=== PATIENT | male | born 1990 | race Caucasian/White ===

== ENCOUNTER 2017-03-03 21:50 | Inpatient (IN) | payer OTHER ==
[2017-03-03 21:57] VITALS: BMI 23.2
--- NOTE | 2017-03-03 22:30 | HP ---
COWS - Scale Resting Pulse: 0= [place] 80 or Below Sweatin=Flushed/Facial Moisture Restless Observation: 1= Difficult to Sit Still Pupil Size: 1= Pupils >than Normal Bone or Joint Aches: 2= Severe Diffuse Aches Runny Nose/ Eye Tearin= Constantly Teary/Runny GI Upset > 30mins: 1= Stomach Cramp Tremor Observation: 2= Slight Tremor Visible Yawning Observation: 1= 1-2x During Session Anxiety or Irritability: 2=Irritable/Anxious Goose Flesh Skin: 0=Smooth Skin COWS Score: 16 Admission [facility] Chief Complaint: Opioid withdrawal symptoms Allergies/Adverse Reactions: Allergies Allergy/AdvReac Type Severity Reaction Status Date / Time No Known Allergies Allergy Verified 03/03/17 22:28 History of Present Illness: 26 years old male with a long history of heroin and cocaine dependence is seeking admission to detox. Resident has been in previous detox, last at [facility]. He reports insignificant period of sobriety and denies suicidal ideation at this time. He has medical history of anemia and depression. Exam Limitations: No Limitations - Ebola screening Have you traveled outside of the country in the last 21 days: No Have you had contact with anyone from an Ebola affected area: No Have you been sick,other than usual withdrawal symptoms: No Do you have a fever: No - Review of Systems Constitutional: Loss of Appetite, Malaise, Changes in sleep EENT: reports: Nose Congestion, Sinus Pressure Respiratory: reports: No Symptoms reported Cardiac: reports: No Symptoms Reported GI: reports: Poor Appetite, Poor Fluid Intake, Abdominal cramping : reports: No Symptoms Reported Musculoskeletal: reports: Back Pain, Muscle Pain, Muscle Weakness Integumentary: reports: Flushing Neuro: reports: Tingling, Tremors Endocrine: reports: No Symptoms Reported Hematology: reports: Anemia Psychiatric: reports: Orientated x3, Agitated, Anxious, Depressed Other Systems: Reviewed and Negative Patient History - Patient Medical History Hx Anemia: Yes Hx Asthma: No Hx Chronic Obstructive Pulmonary Disease (COPD): No Hx Cancer: No Hx Cardiac Disorders: No Hx Congestive Heart Failure: No Hx Hypertension: No Hx Hypercholesterolemia: No Hx Pacemaker: No HX Cerebrovascular Accident: No Hx Seizures: No Hx Diabetes: No Hx Gastrointestinal Disorders: No Hx Liver Disease: No Hx Genitourinary Disorders: No Hx Sexually Transmitted Disorders: No Hx Renal Disease (ESRD): No Hx Thyroid Disease: No Hx Human Immunodeficiency Virus (HIV): No (Negative October 2016) Hx Hepatitis C: No Hx Depression: Yes Hx Suicide Attempt: No (Denies suicidal ideation at this time) Hx Bipolar Disorder: No Hx Schizophrenia: No - Patient Surgical History Past Surgical History: No - PPD History Previous Implant?: Yes Documented Results: Negative w/o proof Implanted On Prior R Admission?: No PPD to be Administered?: Yes - Reproductive History Patient is a Female of Child Bearing Age (11 -55 yrs old): No (MALE) - Smoking Cessation Smoking history: Current every day smoker Have you smoked in the past 12 months: Yes Aproximately how many cigarettes per day: 15 Hx Chewing Tobacco Use: No Initiated information on smoking cessation: Yes 'Breaking Loose' booklet given: 03/03/17 - Substance & Tx. History Hx Alcohol Use: No Hx Substance Use: Yes Substance Use Type: Cocaine, Heroin, Opiates Hx Substance Use Treatment: Yes (MICAH PEREZ 2016) - Substances Abused Heroin Route: Injection Frequency: Daily Amount used: 10 bags Age of first use: 19 Date of Last Use: 03/03/17 Cocaine Route: Injection Frequency: Daily Amount used: 1/2 gram Age of first use: 23 Date of Last Use: 03/03/17 Oxycontin Route: Oral Frequency: 3-6 times per week Amount used: 1 tablet Age of first use: 18 Date of Last Use: 03/02/17 Family Disease History - Family Disease History Family Disease History: Heart Disease: Father (AFIB), Respiratory: Grandparent ( GRANDMOTHER COPD - ) Admission Physical Exam S - Vital Signs Vital Signs: Vital Signs - 24 hr 03/03/17 21:55 Temperature 96.7 F L Pulse Rate 74 Respiratory 18 Rate Blood Pressure 112/52 - Physical General Appearance: Yes: Moderate Distress, Tremorous, Irritable, Anxious HEENTM: Yes: EOMI, Normal ENT Inspection, Normal Voice, UNIQUE Respiratory: Yes: Lungs Clear, Normal Breath Sounds, No Respiratory Distress Neck: Yes: Supple Breast: Yes: Breast Exam Deferred Cardiology: Yes: Regular Rhythm, Regular Rate, S1, S2 Abdominal: Yes: Normal Bowel Sounds, Soft Genitourinary: Yes: Within Normal Limits Back: Yes: Within Normal Limits Musculoskeletal: Yes: Back pain, Muscle Pain, Muscle weakness Extremities: Yes: Tremors Neurological: Yes: Within Normal Limits, Alert, Normal Response Integumentary: Yes: Dry, Track [place] (both hands) Lymphatic: Yes: Within Normal Limits - Diagnostic (1) Opioid dependence with withdrawal Current Visit: Yes Status: Chronic (2) Cocaine dependence, uncomplicated Current Visit: Yes Status: Chronic (3) Anemia Current Visit: Yes Status: Chronic Qualifiers: Anemia type: iron deficiency (4) Depression Current Visit: Yes Status: Chronic Cleared for Admission [facility] - Detox or Rehab [facility] Level of Care: Medically Managed Detox Regimen/Protocol: Methadone [facility] Breath Alcohol Content Breath Alcohol Content: 0 Urine Drug Screen - Results Drug Screen Negative: No Urine Drug Screen Results: FERNANDO-Cocaine, OPI-Opiates, OXY-Oxycodone
[2017-03-03] MEDS ORDERED: MAG HYDROX/AL HYDROX/SIMETH 30 ML UNIT-DOSE CUP PO PRN (22:53)
[2017-03-03] MEDS ORDERED: guaiFENesin/D-METHORPHAN HB 10 ML UNIT-DOSE CUPS PO PRN (22:53)
[2017-03-03] MEDS ORDERED: IBUPROFEN 400 MG TABLET (FP) PO PRN (22:53)
[2017-03-03] MEDS ORDERED: MAGNESIUM CITRATE 300 ML BOTTLE PO PRN (22:53)
[2017-03-03] MEDS ORDERED: P-EPHED 60MG/TRIPROLIDI 2.5MG TABLET PO PRN (22:53)
[2017-03-03] MEDS ORDERED: ACETAMINOPHEN 325 MG TABLET (FP) PO PRN (22:53)
[2017-03-03] MEDS ORDERED: LOPERAMIDE HCL 2 MG CAPSULE PO PRN (22:53)
[2017-03-03] MEDS ORDERED: MAGNESIUM HYDROX 2400MG/30ML ORAL SUSPENSION 30 ML CUP PO PRN (22:53)
[2017-03-03] MEDS ORDERED: METHADONE HCL 10 MG TABLET (FOR DETOX USE ONLY) PO ONE ×2 (22:53→23:00)
[2017-03-03] MEDS ORDERED: MENTHOL/PHENOL 1 EACH UD MM PRN (22:53)
[2017-03-04] MEDS ORDERED: METHADONE HCL 10 MG TABLET (FOR DETOX USE ONLY) PO ONE ×3 (01:05→23:00)
[2017-03-04] MEDS: diazePAM 5 MG TABLET PO PRN ×4 (01:33→22:02)
[2017-03-04 10:14] LABS: CHLORIDE 104 mmol/L (98-107); SODIUM 140 mmol/L (136-145)
[2017-03-04 10:16] LABS: HEMATOCRIT 34.7 % (35.4-49); HEMOGLOBIN 11.3 GM/dL (11.7-16.9); MCH 26.9 pg (25.7-33.7); MCHC 32.5 g/dl (32.0-35.9); MEAN PLT VOLUME 8.8 fl (7.5-11.1); PLATELET COUNT 202 K/MM3 (134-434); RBC 4.19 M/mm3 (4.00-5.60); RDW 15.5 % (11.9-15.9); WHITE BLOOD COUNT 4.7 K/mm3 (4.0-10.0)
[2017-03-04 10:30] LABS: ALBUMIN 3.4 g/dl (3.4-5.0); ALK PHOS 63 U/L (45-117); ANION GAP 7 (8-16); BILIRUBIN,TOTAL 0.7 mg/dL (0.2-1.0); BLOOD UREA NITROGEN 12 mg/dL (7-18); CALCIUM 8.5 mg/dL (8.5-10.1); CO2 29 mmol/L (21-32); CREATININE 0.8 mg/dL (0.7-1.3); GLUCOSE,RANDOM 83 mg/dL (74-106); SGOT/AST 18 U/L (15-37); SGPT/ALT 19 U/L (12-78); TOT PROT 7.3 g/dl (6.4-8.2)
[2017-03-04] MEDS: PRENATAL VITAMINS W/ FOLIC ACID TABLET (FP) PO SCH (10:48)
[2017-03-04] MEDS: NICOTINE POLACRILEX 2 MG GUM BC PRN ×2 (10:50→17:12)
[2017-03-04] MEDS: NICOTINE 14 MG/24 HOURS TOPICAL PATCH TD SCH (10:50)
--- NOTE | 2017-03-04 10:55 | EKG ---
Test Reason : Blood Pressure : / mmHG Vent. Rate : 061 BPM Atrial Rate : 061 BPM P-R Int : 156 ms QRS Dur : 092 ms QT Int : 386 ms P-R-T Axes : 045 074 062 degrees QTc Int : 388 ms NORMAL SINUS RHYTHM NORMAL ECG NO PREVIOUS ECGS AVAILABLE Confirmed by MD Justus, Tushar ([id number]) on 03/04/2017 10:54:44 AM Referred By: Felipe Benson Confirmed By:Tushar Jerome MD
--- NOTE | 2017-03-04 11:03 | CONSULT ---
[facility] Psychiatric Consult - Data Date of interview: 03/04/17 Admission source: Self-referred Identifying data: Mr Painter is a 26 years old single , employed as wall taper, living with family Substance Abuse History: Reports history of heroin oxycontin and cocaine use. Refer to addiction counselor's note for further information Medical History: Significant history of anemia. Smokes 15 cigarettes daily Psychiatric History: Reports he saw a psychiatrist in 2012 as recoommended by her mother because of his drug use. He said that the psychiatrist felt like he was self medicating with substance because of underlying depression and anxiety. He said that he was tried on Xanax, Elavil, Lunesta. He claims that he took medication on & off and stopped last year. Denies history of previous psychiatric hospitalization or suicidal attempt. At present, reports feeling anxious and sleeping poorly Physical/Sexual Abuse/Trauma History: Denies history of previous verbal physical or sexual abuse as well as DV relationship. No service Additional Comment: Reports history of 3-4 previous misdemeanor arrests. No probation or active case Mental Status Exam - Mental Status Exam Alert and Oriented to: Time, Place, Person Cognitive Function: Fair Patient Appearance: Well Groomed Mood: Anxious, Hopeful Affect: Normal Range Patient Behavior: Cooperative Speech Pattern: Clear Voice Loudness: Normal Thought Process: Intact, Goal Oriented Thought Disorder: Not Present Hallucinations: Denies Suicidal Ideation: Denies Homicidal Ideation: Denies Insight/Judgement: Poor Sleep: Poorly Appetite: Good Muscle strength/Tone: Normal Gait/Station: Normal Psychiatric Findings - Problem List ([place] 1, 2,3) (1) Substance-induced anxiety disorder Current Visit: Yes Status: Acute (2) Substance-induced sleep disorder Current Visit: Yes Status: Acute (3) Opioid dependence with withdrawal Current Visit: Yes Status: Acute (4) Cocaine dependence, uncomplicated Current Visit: Yes Status: Acute (5) Anemia Current Visit: Yes Status: Chronic Qualifiers: Anemia type: iron deficiency - Initial Treatment Plan Initial Treatment Plan: 1) Start Ambien 10 mg po HS. Benefit vs Risks of medication discussed with patient and he agreed to try it. 2) Continue inpatient detoxification
--- NOTE | 2017-03-04 11:39 | PN ---
BHS COWS - Scale Resting Pulse: 0= [place] 80 or Below Sweatin= Chills/Flushing Restless Observation: 3= Extraneous Movement Pupil Size: 0= Normal to Room Light Bone or Joint Aches: 4=Acute Joint/Muscle Pain Runny Nose/ Eye Tearin= Nasal Congestion GI Upset > 30mins: 1= Stomach Cramp Tremor Observation of Outstretched Hands: 1= Tremor [place], Not Seen Yawning Observation: 1= 1-2x During Session Anxiety or Irritability: 2=Irritable/Anxious Goose Flesh Skin: 0=Smooth Skin COWS Score: 14 S Progress Note (SOAP) Subjective: BODY ACHES,ANXIETY,SWEATS,INTERMITTENT SLEEP. Objective: 03/04/17 11:38 Vital Signs Temperature 97.2 F L 03/04/17 10:13 Pulse Rate 69 03/04/17 10:13 Respiratory Rate 18 03/04/17 10:13 Blood Pressure 106/72 03/04/17 10:13 O2 Sat by Pulse Oximetry (%) Laboratory Last Values WBC 4.7 K/mm3 (4.0-10.0) 03/04/17 07:00 RBC 4.19 M/mm3 (4.00-5.60) 03/04/17 07:00 Hgb 11.3 GM/dL (11.7-16.9) L 03/04/17 07:00 Hct 34.7 % (35.4-49) L 03/04/17 07:00 MCV 83.0 fl (80-96) 03/04/17 07:00 MCH 26.9 pg (25.7-33.7) 03/04/17 07:00 MCHC 32.5 g/dl (32.0-35.9) 03/04/17 07:00 RDW 15.5 % (11.9-15.9) 03/04/17 07:00 Plt Count 202 K/MM3 (134-434) 03/04/17 07:00 MPV 8.8 fl (7.5-11.1) 03/04/17 07:00 Sodium 140 mmol/L (136-145) 03/04/17 07:00 Potassium 4.0 mmol/L (3.5-5.1) 03/04/17 07:00 Chloride 104 mmol/L (98-107) 03/04/17 07:00 Carbon Dioxide 29 mmol/L (21-32) 03/04/17 07:00 Anion Gap 7 (8-16) L 03/04/17 07:00 BUN 12 mg/dL (7-18) 03/04/17 07:00 Creatinine 0.8 mg/dL (0.7-1.3) 03/04/17 07:00 Creat Clearance w eGFR > 60 (>60) 03/04/17 07:00 Random Glucose 83 mg/dL (74-106) 03/04/17 07:00 Calcium 8.5 mg/dL (8.5-10.1) 03/04/17 07:00 Total Bilirubin 0.7 mg/dL (0.2-1.0) 03/04/17 07:00 AST 18 U/L (15-37) 03/04/17 07:00 ALT 19 U/L (12-78) 03/04/17 07:00 Alkaline Phosphatase 63 U/L (45-117) 03/04/17 07:00 Total Protein 7.3 g/dl (6.4-8.2) 03/04/17 07:00 Albumin 3.4 g/dl (3.4-5.0) 03/04/17 07:00 Assessment: 03/04/17 11:39 WITHDRAWAL SX Plan: CONTINUE DETOX
[2017-03-04] MEDS ORDERED: FERROUS SO4 325 MG TABLET (FP) PO SCH (11:45)
[2017-03-04] MEDS ORDERED: FERROUS SO4 325 MG TABLET (FP) PO ONE (11:50)
[2017-03-04 15:10] LABS: URINE APPEARANCE CLEAR; URINE BILIRUBIN NEGATIVE (NEGATIVE); URINE BLOOD NEGATIVE (NEGATIVE); URINE COLOR YELLOW; URINE GLUCOSE (UA) NEGATIVE (NEGATIVE); URINE KETONE NEGATIVE (NEGATIVE); URINE LEUK ESTERASE NEGATIVE (NEGATIVE); URINE NITRITE NEGATIVE (NEGATIVE); URINE PROTEIN NEGATIVE (NEGATIVE); URINE UROBILINOGEN NEGATIVE mg/dL (0.2-1.0)
[2017-03-04] MEDS: FERROUS SO4 325 MG TABLET (FP) PO SCH (17:11)
[2017-03-04] MEDS: THIAMINE HCL 100 MG TABLET (FP) PO SCH (22:02)
[2017-03-04] MEDS: ZOLPIDEM TARTRATE 10 MG TABLET (PARK CARE ONLY) PO PRN (22:04)
[2017-03-05] MEDS: FERROUS SO4 325 MG TABLET (FP) PO SCH ×2 (07:45→17:40)
[2017-03-05] MEDS ORDERED: METHADONE HCL 5 MG TABLET (FOR DETOX USE ONLY) PO ONE (10:00)
[2017-03-05] MEDS ORDERED: METHADONE HCL 10 MG TABLET (FOR DETOX USE ONLY) PO ONE (10:00)
[2017-03-05] MEDS: PRENATAL VITAMINS W/ FOLIC ACID TABLET (FP) PO SCH (10:40)
[2017-03-05] MEDS: diazePAM 5 MG TABLET PO PRN ×4 (10:40→22:33)
[2017-03-05] MEDS: NICOTINE POLACRILEX 2 MG GUM BC PRN ×3 (10:41→22:33)
[2017-03-05] MEDS: NICOTINE 14 MG/24 HOURS TOPICAL PATCH TD SCH (10:41)
--- NOTE | 2017-03-05 12:21 | PN ---
BHS COWS - Scale Resting Pulse: 1= [place] 81-100 Sweatin= Chills/Flushing Restless Observation: 3= Extraneous Movement Pupil Size: 0= Normal to Room Light Bone or Joint Aches: 4=Acute Joint/Muscle Pain Runny Nose/ Eye Tearin= Nasal Congestion GI Upset > 30mins: 0= None Tremor Observation of Outstretched Hands: 2= Slight Tremor Visible Yawning Observation: 1= 1-2x During Session Anxiety or Irritability: 2=Irritable/Anxious Goose Flesh Skin: 0=Smooth Skin COWS Score: 15 BHS Progress Note (SOAP) Subjective: ANXIETY,LEG MUSCLE CRAMPS/TWITCHING, CHILLS, FATIGUE. Objective: 03/05/17 12:20 Vital Signs Temperature 97.6 F 03/05/17 09:19 Pulse Rate 100 H 03/05/17 09:19 Respiratory Rate 18 03/05/17 09:19 Blood Pressure 113/77 03/05/17 09:19 O2 Sat by Pulse Oximetry (%) Laboratory Last Values WBC 4.7 K/mm3 (4.0-10.0) 03/04/17 07:00 RBC 4.19 M/mm3 (4.00-5.60) 03/04/17 07:00 Hgb 11.3 GM/dL (11.7-16.9) L 03/04/17 07:00 Hct 34.7 % (35.4-49) L 03/04/17 07:00 MCV 83.0 fl (80-96) 03/04/17 07:00 MCH 26.9 pg (25.7-33.7) 03/04/17 07:00 MCHC 32.5 g/dl (32.0-35.9) 03/04/17 07:00 RDW 15.5 % (11.9-15.9) 03/04/17 07:00 Plt Count 202 K/MM3 (134-434) 03/04/17 07:00 MPV 8.8 fl (7.5-11.1) 03/04/17 07:00 Sodium 140 mmol/L (136-145) 03/04/17 07:00 Potassium 4.0 mmol/L (3.5-5.1) 03/04/17 07:00 Chloride 104 mmol/L (98-107) 03/04/17 07:00 Carbon Dioxide 29 mmol/L (21-32) 03/04/17 07:00 Anion Gap 7 (8-16) L 03/04/17 07:00 BUN 12 mg/dL (7-18) 03/04/17 07:00 Creatinine 0.8 mg/dL (0.7-1.3) 03/04/17 07:00 Creat Clearance w eGFR > 60 (>60) 03/04/17 07:00 Random Glucose 83 mg/dL (74-106) 03/04/17 07:00 Calcium 8.5 mg/dL (8.5-10.1) 03/04/17 07:00 Total Bilirubin 0.7 mg/dL (0.2-1.0) 03/04/17 07:00 AST 18 U/L (15-37) 03/04/17 07:00 ALT 19 U/L (12-78) 03/04/17 07:00 Alkaline Phosphatase 63 U/L (45-117) 03/04/17 07:00 Total Protein 7.3 g/dl (6.4-8.2) 03/04/17 07:00 Albumin 3.4 g/dl (3.4-5.0) 03/04/17 07:00 Urine Color Yellow 03/03/17 12:30 Urine Appearance Clear 03/03/17 12:30 Urine pH 7.0 (5.0-8.0) 03/03/17 12:30 Ur Specific [place] 1.014 (1.001-1.035) 03/03/17 12:30 Urine Protein Negative (NEGATIVE) 03/03/17 12:30 Urine Glucose (UA) Negative (NEGATIVE) 03/03/17 12:30 Urine Ketones Negative (NEGATIVE) 03/03/17 12:30 Urine Blood Negative (NEGATIVE) 03/03/17 12:30 Urine Nitrite Negative (NEGATIVE) 03/03/17 12:30 Urine Bilirubin Negative (NEGATIVE) 03/03/17 12:30 Urine Urobilinogen Negative mg/dL (0.2-1.0) 03/03/17 12:30 Ur Leukocyte Esterase Negative (NEGATIVE) 03/03/17 12:30 RPR Titer Nonreactive (NONREACTIVE) 03/04/17 07:00 Assessment: 03/05/17 12:20 WITHDRAWAL SX Plan: CONTINUE DETOX
[2017-03-05] MEDS: ZOLPIDEM TARTRATE 10 MG TABLET (PARK CARE ONLY) PO PRN (22:33)
[2017-03-05] MEDS: THIAMINE HCL 100 MG TABLET (FP) PO SCH (22:33)
[2017-03-06] MEDS: FERROUS SO4 325 MG TABLET (FP) PO SCH (07:47)
[2017-03-06 09:09] VITALS: BP 117/74; PULSE 106; TEMP 96
[2017-03-06] MEDS ORDERED: METHADONE HCL 5 MG TABLET (FOR DETOX USE ONLY) PO ONE ×2 (10:00)
--- NOTE | 2017-03-06 11:34 | DS ---
[facility] Detox Discharge Summary Admission Date: 03/03/17 Discharge Date: 03/06/17 - History Present History: Opioid Dependence Additional Comments: PT SIGNED OUT AMA FOR PERSONAL REASONS ONLY KNOWN TO PATIENT STATING "I JUST WANNA LEAVE". ALERT O X 3, NAD. PT MET WITH HIS COUNSELOR KAITLIN COX. PT REFERRED TO FOLLOW UP WITH AFTERCARE. PT TO FOLLOW UP WITH PMD FOR MEDICAL MANAGEMENT NEEDED. Pertinent Past History: ANEMIA OF UNKNOWN ORIGIN - Physical Exam Results Vital Signs: Vital Signs Temperature 96.0 F L 03/06/17 09:08 Pulse Rate 106 H 03/06/17 09:08 Respiratory Rate 18 03/06/17 09:08 Blood Pressure 117/74 03/06/17 09:08 O2 Sat by Pulse Oximetry (%) Pertinent Admission Physical Exam Findings: WITHDRAWAL SX Laboratory Last Values WBC 4.7 K/mm3 (4.0-10.0) 03/04/17 07:00 RBC 4.19 M/mm3 (4.00-5.60) 03/04/17 07:00 Hgb 11.3 GM/dL (11.7-16.9) L 03/04/17 07:00 Hct 34.7 % (35.4-49) L 03/04/17 07:00 MCV 83.0 fl (80-96) 03/04/17 07:00 MCH 26.9 pg (25.7-33.7) 03/04/17 07:00 MCHC 32.5 g/dl (32.0-35.9) 03/04/17 07:00 RDW 15.5 % (11.9-15.9) 03/04/17 07:00 Plt Count 202 K/MM3 (134-434) 03/04/17 07:00 MPV 8.8 fl (7.5-11.1) 03/04/17 07:00 Sodium 140 mmol/L (136-145) 03/04/17 07:00 Potassium 4.0 mmol/L (3.5-5.1) 03/04/17 07:00 Chloride 104 mmol/L (98-107) 03/04/17 07:00 Carbon Dioxide 29 mmol/L (21-32) 03/04/17 07:00 Anion Gap 7 (8-16) L 03/04/17 07:00 BUN 12 mg/dL (7-18) 03/04/17 07:00 Creatinine 0.8 mg/dL (0.7-1.3) 03/04/17 07:00 Creat Clearance w eGFR > 60 (>60) 03/04/17 07:00 Random Glucose 83 mg/dL (74-106) 03/04/17 07:00 Calcium 8.5 mg/dL (8.5-10.1) 03/04/17 07:00 Total Bilirubin 0.7 mg/dL (0.2-1.0) 03/04/17 07:00 AST 18 U/L (15-37) 03/04/17 07:00 ALT 19 U/L (12-78) 03/04/17 07:00 Alkaline Phosphatase 63 U/L (45-117) 03/04/17 07:00 Total Protein 7.3 g/dl (6.4-8.2) 03/04/17 07:00 Albumin 3.4 g/dl (3.4-5.0) 03/04/17 07:00 Urine Color Yellow 03/03/17 12:30 Urine Appearance Clear 03/03/17 12:30 Urine pH 7.0 (5.0-8.0) 03/03/17 12:30 Ur Specific [place] 1.014 (1.001-1.035) 03/03/17 12:30 Urine Protein Negative (NEGATIVE) 03/03/17 12:30 Urine Glucose (UA) Negative (NEGATIVE) 03/03/17 12:30 Urine Ketones Negative (NEGATIVE) 03/03/17 12:30 Urine Blood Negative (NEGATIVE) 03/03/17 12:30 Urine Nitrite Negative (NEGATIVE) 03/03/17 12:30 Urine Bilirubin Negative (NEGATIVE) 03/03/17 12:30 Urine Urobilinogen Negative mg/dL (0.2-1.0) 03/03/17 12:30 Ur Leukocyte Esterase Negative (NEGATIVE) 03/03/17 12:30 RPR Titer Nonreactive (NONREACTIVE) 03/04/17 07:00 - Treatment Hospital Course: Discharged Condition Good, Rehab Referral Accepted Patient has Accepted a Rehab Referral to: [facility] - Medication Discharge Medications: Ambulatory Orders NK [No Known Home Medication] 03/05/17 - Diagnosis (1) Cocaine dependence, uncomplicated Current Visit: Yes Status: Acute (2) Opioid dependence with withdrawal Current Visit: Yes Status: Acute (3) Anemia Current Visit: Yes Status: Chronic Qualifiers: Anemia type: iron deficiency (4) Nicotine dependence Current Visit: Yes Status: Acute Qualifiers: Nicotine product type: cigarettes Substance use status: in withdrawal Qualified Code(s): F17.213 - Nicotine dependence, cigarettes, with withdrawal - AMA Did Patient Leave Against Medical Advice: Yes (AMA)
[2017-03-07] MEDS ORDERED: METHADONE HCL 10 MG TABLET (FOR DETOX USE ONLY) PO ONE (10:00)
[2017-03-07] MEDS ORDERED: METHADONE HCL 5 MG TABLET (FOR DETOX USE ONLY) PO ONE (10:00)
[2017-03-08] MEDS ORDERED: METHADONE HCL 5 MG TABLET (FOR DETOX USE ONLY) PO ONE (06:00)
[2017-03-08] MEDS ORDERED: METHADONE HCL 10 MG TABLET (FOR DETOX USE ONLY) PO ONE (10:00)
[2017-03-09] MEDS ORDERED: METHADONE HCL 5 MG TABLET (FOR DETOX USE ONLY) PO ONE (06:00)
== END 2017-03-06 10:10 | disposition left against medical advice (07) | DRG 770 ==
LOC: YASAS 21:50 → Y3N 22:47
PROVIDERS: ADMIT Internal Medicine; ATTEND Internal Medicine
PROC: HZ2ZZZZ Detoxification Services for Substance Abuse Treatment (ICD-10-PCS; principal; 2017-03-03)
DX: F11.23 Opioid dependence with withdrawal (principal); F14.20 Cocaine dependence, uncomplicated; F17.213 Nicotine dependence, cigarettes, with withdrawal; F19.280 Other psychoactive substance dependence with psychoactive substance-induced anxiety disorder; F19.282 Other psychoactive substance dependence with psychoactive substance-induced sleep disorder; F32.9 Major depressive disorder, single episode, unspecified; D50.9 Iron deficiency anemia, unspecified
CPT/HCPCS: 36415; 80053; 81003; 85027; 86593; 93005; 93010

== ENCOUNTER 2017-07-15 10:22 | Inpatient (IN) | payer OTHER ==
[2017-07-15 10:50] VITALS: BMI 24.0
--- NOTE | 2017-07-15 13:44 | HP ---
Admission ROS [facility] Chief Complaint: I WANT TO GO TO REHAB Allergies/Adverse Reactions: Allergies Allergy/AdvReac Type Severity Reaction Status Date / Time No Known Allergies Allergy Verified 07/15/17 11:27 History of Present Illness: 26 YEARS OLD MALE WITH LONG HISTORY OF COCAINE NICOTINE DEPENDENCE HAS DEPRESSION AND ANXIETY IS ADMITTED TO REHAB Exam Limitations: No Limitations - Ebola screening Have you traveled outside of the country in the last 21 days: No Have you had contact with anyone from an Ebola affected area: No Have you been sick,other than usual withdrawal symptoms: No Do you have a fever: No Patient History - Patient Medical History Hx Anemia: Yes Hx Asthma: No Hx Chronic Obstructive Pulmonary Disease (COPD): No Hx Cancer: No Hx Cardiac Disorders: No Hx Congestive Heart Failure: No Hx Hypertension: No Hx Hypercholesterolemia: No Hx Pacemaker: No HX Cerebrovascular Accident: No Hx Seizures: No Hx Dementia: No Hx Diabetes: No Hx Gastrointestinal Disorders: No Hx Liver Disease: No Hx Genitourinary Disorders: No Hx Sexually Transmitted Disorders: No Hx Renal Disease (ESRD): No Hx Thyroid Disease: No Hx Human Immunodeficiency Virus (HIV): No (Negative October 2016) Hx Hepatitis C: No Hx Depression: Yes Hx Suicide Attempt: No Hx Bipolar Disorder: No Hx Schizophrenia: No - Patient Surgical History Past Surgical History: No Hx Neurologic Surgery: No Hx Cataract Extraction: No Hx Cardiac Surgery: No Hx Lung Surgery: No Hx Breast Surgery: No Hx Breast Biopsy: No Hx Abdominal Surgery: No Hx Appendectomy: No Hx Cholecystectomy: No Hx Genitourinary Surgery: No Hx Orthopedic Surgery: No - PPD History Previous Implant?: Yes Documented Results: Negative w/proof Implanted On Prior [facility] Admission?: Yes Date: 03/06/17 Results: 0 mm PPD to be Administered?: No - Smoking Cessation Smoking history: Current every day smoker Have you smoked in the past 12 months: Yes Aproximately how many cigarettes per day: 10 Cigars Per Day: 0 Hx Chewing Tobacco Use: No Initiated information on smoking cessation: Yes 'Breaking Loose' booklet given: 07/15/17 - Substance & Tx. History Hx Alcohol Use: No Hx Substance Use: Yes Substance Use Type: Cocaine, Tranquilizers Hx Substance Use Treatment: Yes (02/2017 [facility]) - Substances Abused Cocaine Route: Injection Frequency: 3-6 times per week Amount used: 1/2 gm Age of first use: 22 Date of Last Use: 07/13/17 Heroin Route: Injection Frequency: 3-6 times per week Amount used: 5-10 bags Age of first use: 19 Date of Last Use: 07/13/17 Family Disease History - Family Disease History Family Disease History: Heart Disease: Father (AFIB), Respiratory: Grandparent ( GRANDMOTHER COPD - ) Admission Physical Exam [facility] - Vital Signs Vital Signs: Vital Signs - 24 hr 07/15/17 10:47 Temperature 98.4 F Pulse Rate 84 Respiratory 20 Rate Blood Pressure 110/70 - Physical General Appearance: Yes: No Apparent Distress, Nourished, Appropriately Dressed HEENTM: Yes: Hearing grossly Normal, Normocephalic, Normal Voice Respiratory: Yes: Chest Non-Tender, Lungs Clear, Normal Breath Sounds, No Respiratory Distress, No Accessory Muscle Use Neck: Yes: Supple, Trachea in good position Breast: Yes: Breasts Symetrical, No Discharge Cardiology: Yes: Regular Rhythm, Regular Rate, S1, S2 Abdominal: Yes: Normal Bowel Sounds, Non Tender, Flat Genitourinary: Yes: Within Normal Limits Back: Yes: Normal Inspection Musculoskeletal: Yes: full range of Motion, Gait Steady Extremities: Yes: Normal Inspection, Normal Range of Motion, Non-Tender Neurological: Yes: Fully Oriented, Alert, Motor Strength 5/5, Depressed Affect Integumentary: Yes: Warm Lymphatic: Yes: Within Normal Limits - Diagnostic (1) Methadone maintenance therapy patient Current Visit: Yes Status: Chronic Comment: 100 MG (2) Cocaine dependence with withdrawal Current Visit: Yes Status: Acute (3) Nicotine dependence Current Visit: Yes Status: Acute Qualifiers: Nicotine product type: cigarettes Substance use status: in withdrawal Qualified Code(s): F17.213 - Nicotine dependence, cigarettes, with withdrawal Cleared for Admission [facility] - Detox or Rehab [facility] Level of Care: Observation Bed Detox Regimen/Protocol: Not Applicable Claeared for Rehab Admission: Yes [facility] Breath Alcohol Content Breath Alcohol Content: 0 Urine Drug Screen - Results Drug Screen Negative: No Urine Drug Screen Results: FERNANDO-Cocaine, OPI-Opiates, BZO-Benzodiazepines, MTD- Methadone, TCA-Tricyclic Antidepress Inpatient Rehab Admission - Initial Determination Are CD services needed?: Yes Free of communicable disease: Yes Not in need of hospitalization: Yes - Rehab Admission Criteria Previous failed treatment: Yes Poor recovery environment: Yes Comorbidities: Yes Lacks judgement: No Patient is meeting Inpatient Rehab admission criteria:: Yes
[2017-07-15] MEDS ORDERED: LOPERAMIDE HCL 2 MG CAPSULE PO PRN (13:47)
[2017-07-15] MEDS ORDERED: MAGNESIUM CITRATE 300 ML BOTTLE PO PRN (13:47)
[2017-07-15] MEDS ORDERED: IBUPROFEN 400 MG TABLET (FP) PO PRN (13:47)
[2017-07-15] MEDS ORDERED: ACETAMINOPHEN 325 MG TABLET (FP) PO PRN (13:47)
[2017-07-15] MEDS ORDERED: MAG HYDROX/AL HYDROX/SIMETH 30 ML UNIT-DOSE CUP PO PRN (13:47)
[2017-07-15] MEDS ORDERED: guaiFENesin/D-METHORPHAN HB 10 ML UNIT-DOSE CUPS PO PRN (13:47)
[2017-07-15] MEDS ORDERED: MENTHOL/PHENOL 1 EACH UD MM PRN (13:47)
[2017-07-15] MEDS ORDERED: P-EPHED 60MG/TRIPROLIDI 2.5MG TABLET PO PRN (13:47)
[2017-07-15] MEDS ORDERED: NICOTINE 21 MG/24 HOURS TOPICAL PATCH TD PRN (13:47)
[2017-07-15] MEDS ORDERED: MAGNESIUM HYDROX 2400MG/30ML ORAL SUSPENSION 30 ML CUP PO PRN (13:47)
[2017-07-15] MEDS ORDERED: BACLOFEN 10 MG TABLET (FP) PO PRN (13:49)
[2017-07-15] MEDS: NICOTINE POLACRILEX 4 MG GUM BUC PRN ×2 (17:48→21:21)
[2017-07-15 20:24] LABS: URINE APPEARANCE CLEAR; URINE BILIRUBIN NEGATIVE (<2.0 mg/dL); URINE BLOOD NEGATIVE (NEGATIVE); URINE COLOR YELLOW; URINE GLUCOSE (UA) NEGATIVE (NEGATIVE); URINE KETONE NEGATIVE (NEGATIVE); URINE LEUK ESTERASE TRACE (NEGATIVE); URINE NITRITE NEGATIVE (NEGATIVE); URINE PROTEIN NEGATIVE (NEGATIVE); URINE UROBILINOGEN NEGATIVE mg/dL (0.2-1.0)
[2017-07-15 20:30] LABS: URINE MUCUS RARE
[2017-07-15] MEDS: THIAMINE HCL 100 MG TABLET (FP) PO SCH (21:19)
[2017-07-15] MEDS ORDERED: MELATONIN 5 MG TABLETS PO PRN (22:00)
[2017-07-16] MEDS: NICOTINE POLACRILEX 4 MG GUM BUC PRN ×5 (07:54→21:13)
[2017-07-16] MEDS ORDERED: METHADONE HCL 10 MG TABLET ONE (08:58)
[2017-07-16] MEDS ORDERED: METHADONE HCL 40 MG DISPERSABLE TABLET ONE (08:59)
[2017-07-16] MEDS: PRENATAL VITAMINS W/ FOLIC ACID TABLET (FP) PO SCH (10:00)
[2017-07-16] MEDS ORDERED: METHADONE 80 MG, METHADONE 20 MG PO SCH (10:00)
[2017-07-16] MEDS ORDERED: METHADONE HCL 40 MG DISPERSABLE TABLET PO SCH (10:00)
[2017-07-16 10:40] LABS: HEMATOCRIT 38.8 % (35.4-49); HEMOGLOBIN 12.7 GM/dL (11.7-16.9); MCH 27.9 pg (25.7-33.7); MCHC 32.8 g/dl (32.0-35.9); MEAN PLT VOLUME 9.7 fl (7.5-11.1); PLATELET COUNT 254 K/MM3 (134-434); RBC 4.56 M/mm3 (4.00-5.60); RDW 16.9 % (11.9-15.9); WHITE BLOOD COUNT 6.1 K/mm3 (4.0-10.0)
[2017-07-16 10:53] LABS: CHLORIDE 102 mmol/L (98-107); SODIUM 138 mmol/L (136-145)
[2017-07-16 11:40] LABS: ALBUMIN 4.3 g/dl (3.4-5.0); ALK PHOS 88 U/L (45-117); ANION GAP 10 (8-16); BILIRUBIN,TOTAL 0.5 mg/dL (0.2-1.0); BLOOD UREA NITROGEN 15 mg/dL (7-18); CO2 26 mmol/L (21-32); GLUCOSE,RANDOM 76 mg/dL (74-106); SGOT/AST 25 U/L (15-37); TOT PROT 8.9 g/dl (6.4-8.2)
[2017-07-16 12:03] LABS: SGPT/ALT 26 U/L (12-78)
--- NOTE | 2017-07-16 13:29 | EKG ---
Test Reason : Blood Pressure : / mmHG Vent. Rate : 067 BPM Atrial Rate : 067 BPM P-R Int : 150 ms QRS Dur : 090 ms QT Int : 408 ms P-R-T Axes : 043 078 069 degrees QTc Int : 431 ms NORMAL SINUS RHYTHM NORMAL ECG WHEN COMPARED WITH ECG OF 04-MAR-2017 02:37, NO SIGNIFICANT CHANGE WAS FOUND Confirmed by ETIENNE SANTANA MD ([id number]) on 07/16/2017 1:29:34 PM Referred By: Confirmed By:ETIENNE SANTANA MD
--- NOTE | 2017-07-16 14:23 | HP ---
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 Psychiatric History: Patient reports periods of depressed mood,anxiety,sleeping difficulties n and off.He tried Xanax,Elavil,lunesta on different occasions prescribed by PCP,psychotrist.No history of psychiatric admissionms,no suicidal attemptes reported.still some difficulties to fall asleep,medicated himself with drugs for insomnia. Physical/Sexual Abuse/Trauma History: denies Vital Signs: Vital Signs - 24 hr 07/15/17 07/16/17 07/16/17 16:11 01:03 03:30 Temperature 99.0 F Pulse Rate 86 Respiratory 20 18 18 Rate Blood Pressure 106/75 07/16/17 07/16/17 06:59 08:52 Temperature 97.7 F Pulse Rate 65 83 Respiratory 16 Rate Blood Pressure 101/58 115/74 Allergies/Adverse Reactions: Allergies Allergy/AdvReac Type Severity Reaction Status Date / Time No Known Allergies Allergy Verified 07/15/17 11:27 Concur with the findings of this exam: Yes - Substance Abuse/Tx History Hx Alcohol Use: Yes (socially) Hx Substance Use: Yes (heroin since 20 yo,10 bags IV daily,cocaine since 23 yo IV) Substance Use Type: Alcohol, Heroin Hx Substance Use Treatment: Yes (complted [facility] inpatient rehab 3 year ago, longest abstinence about 6 m ) Mental Status Exam - Mental Status Exam Alert and Oriented to: Time, Place, Person Cognitive Function: Grossly Intact Patient Appearance: Well Groomed Mood: Anxious Affect: Mood Congruent Patient Behavior: Cooperative Speech Pattern: Clear Voice Loudness: Normal Thought Process: Goal Oriented Thought Disorder: Not Present Hallucinations: Denies Suicidal Ideation: Denies Homicidal Ideation: Denies Insight/Judgement: Fair Sleep: Fair Appetite: Good Muscle strength/Tone: Normal Gait/Station: Normal Psychiatric Findings - Problem List ([place] 1, 2,3) (1) Nicotine dependence Current Visit: Yes Status: Chronic Qualifiers: (2) Methadone maintenance therapy patient Current Visit: Yes Status: Chronic Comment: 100 MG (3) Cocaine dependence, uncomplicated Current Visit: Yes Status: Chronic (4) Drug-induced mood disorder Current Visit: Yes Status: Chronic - Initial Treatment Plan Initial Treatment Plan: Doxepin 75 mg po hs.
[2017-07-16] MEDS: DOXEPIN HCL 50 MG CAPSULE PO SCH (21:12)
[2017-07-16] MEDS: THIAMINE HCL 100 MG TABLET (FP) PO SCH (21:12)
[2017-07-16] MEDS: hydrOXYzine PAMOATE 50 MG CAPSULE (FP) PO PRN (21:13)
[2017-07-17] MEDS ORDERED: METHADONE HCL 10 MG TABLET ONE (04:57)
[2017-07-17] MEDS ORDERED: METHADONE HCL 40 MG DISPERSABLE TABLET ONE (04:57)
[2017-07-17] MEDS: METHADONE 80 MG, METHADONE 20 MG PO SCH (06:09)
[2017-07-17] MEDS: NICOTINE POLACRILEX 4 MG GUM BUC PRN ×5 (06:11→21:08)
[2017-07-17] MEDS: hydrOXYzine PAMOATE 50 MG CAPSULE (FP) PO PRN ×2 (09:54→21:07)
[2017-07-17] MEDS: PRENATAL VITAMINS W/ FOLIC ACID TABLET (FP) PO SCH (09:54)
--- NOTE | 2017-07-17 12:43 | PN ---
S Progress Note Note: Vital Signs Temperature 97.8 F 07/17/17 06:33 Pulse Rate 66 07/17/17 06:33 Respiratory Rate 18 07/17/17 06:33 Blood Pressure 110/71 07/17/17 06:33 O2 Sat by Pulse Oximetry (%) Patient request muscle relaxer for back pain. Baclofen d/c . flexeril 5mg TID ordered continue to monitor
[2017-07-17] MEDS: CYCLOBENZAPRINE HCL 5 MG TABLET PO SCH ×2 (13:50→21:07)
[2017-07-17] MEDS: DOXEPIN HCL 50 MG CAPSULE PO SCH (21:07)
[2017-07-17] MEDS: THIAMINE HCL 100 MG TABLET (FP) PO SCH (21:07)
[2017-07-18] MEDS ORDERED: METHADONE HCL 10 MG TABLET ONE (05:32)
[2017-07-18] MEDS ORDERED: METHADONE HCL 40 MG DISPERSABLE TABLET ONE (05:33)
[2017-07-18] MEDS: METHADONE 80 MG, METHADONE 20 MG PO SCH (06:19)
[2017-07-18] MEDS: CYCLOBENZAPRINE HCL 5 MG TABLET PO SCH ×3 (06:20→21:07)
[2017-07-18] MEDS: NICOTINE POLACRILEX 4 MG GUM BUC PRN ×4 (06:22→20:45)
[2017-07-18] MEDS: PRENATAL VITAMINS W/ FOLIC ACID TABLET (FP) PO SCH (09:55)
[2017-07-18] MEDS: hydrOXYzine PAMOATE 50 MG CAPSULE (FP) PO PRN ×2 (09:56→21:07)
[2017-07-18] MEDS: THIAMINE HCL 100 MG TABLET (FP) PO SCH (21:07)
[2017-07-18] MEDS: DOXEPIN HCL 50 MG CAPSULE PO SCH (21:07)
[2017-07-19] MEDS ORDERED: METHADONE HCL 10 MG TABLET ONE (03:20)
[2017-07-19] MEDS ORDERED: METHADONE HCL 40 MG DISPERSABLE TABLET ONE (03:20)
[2017-07-19] MEDS: METHADONE 80 MG, METHADONE 20 MG PO SCH (06:09)
[2017-07-19] MEDS: CYCLOBENZAPRINE HCL 5 MG TABLET PO SCH ×3 (06:09→21:44)
[2017-07-19] MEDS: PRENATAL VITAMINS W/ FOLIC ACID TABLET (FP) PO SCH (09:48)
[2017-07-19] MEDS: NICOTINE POLACRILEX 4 MG GUM BUC PRN ×3 (09:49→21:45)
[2017-07-19] MEDS: hydrOXYzine PAMOATE 50 MG CAPSULE (FP) PO PRN ×2 (09:49→21:45)
[2017-07-19] MEDS: DOXEPIN HCL 50 MG CAPSULE PO SCH (21:44)
[2017-07-19] MEDS: THIAMINE HCL 100 MG TABLET (FP) PO SCH (21:44)
[2017-07-20] MEDS ORDERED: METHADONE HCL 10 MG TABLET ONE (03:47)
[2017-07-20] MEDS ORDERED: METHADONE HCL 40 MG DISPERSABLE TABLET ONE (03:48)
[2017-07-20] MEDS: METHADONE 80 MG, METHADONE 20 MG PO SCH (06:12)
[2017-07-20] MEDS: CYCLOBENZAPRINE HCL 5 MG TABLET PO SCH ×3 (06:12→21:25)
[2017-07-20] MEDS: NICOTINE POLACRILEX 4 MG GUM BUC PRN ×3 (06:13→21:25)
[2017-07-20] MEDS: hydrOXYzine PAMOATE 50 MG CAPSULE (FP) PO PRN ×2 (09:35→21:25)
[2017-07-20] MEDS: PRENATAL VITAMINS W/ FOLIC ACID TABLET (FP) PO SCH (09:35)
[2017-07-20] MEDS: DOXEPIN HCL 50 MG CAPSULE PO SCH (21:24)
[2017-07-20] MEDS: THIAMINE HCL 100 MG TABLET (FP) PO SCH (21:24)
[2017-07-21] MEDS ORDERED: METHADONE HCL 10 MG TABLET ONE (04:24)
[2017-07-21] MEDS ORDERED: METHADONE HCL 40 MG DISPERSABLE TABLET ONE (04:24)
[2017-07-21] MEDS: CYCLOBENZAPRINE HCL 5 MG TABLET PO SCH ×3 (06:13→21:16)
[2017-07-21] MEDS: METHADONE 80 MG, METHADONE 20 MG PO SCH (06:13)
[2017-07-21] MEDS: NICOTINE POLACRILEX 4 MG GUM BUC PRN ×4 (06:15→21:18)
[2017-07-21] MEDS: PRENATAL VITAMINS W/ FOLIC ACID TABLET (FP) PO SCH (09:51)
[2017-07-21] MEDS: hydrOXYzine PAMOATE 50 MG CAPSULE (FP) PO PRN ×2 (09:52→21:16)
[2017-07-21] MEDS: DOXEPIN HCL 50 MG CAPSULE PO SCH (21:16)
[2017-07-21] MEDS: THIAMINE HCL 100 MG TABLET (FP) PO SCH (21:16)
[2017-07-22] MEDS ORDERED: METHADONE HCL 10 MG TABLET ONE (05:06)
[2017-07-22] MEDS ORDERED: METHADONE HCL 40 MG DISPERSABLE TABLET ONE (05:06)
[2017-07-22] MEDS: METHADONE 80 MG, METHADONE 20 MG PO SCH ×2 (07:10→09:01)
[2017-07-22] MEDS: CYCLOBENZAPRINE HCL 5 MG TABLET PO SCH ×3 (07:11→21:18)
[2017-07-22] MEDS: NICOTINE POLACRILEX 4 MG GUM BUC PRN ×4 (07:13→21:18)
[2017-07-22] MEDS: hydrOXYzine PAMOATE 50 MG CAPSULE (FP) PO PRN ×2 (07:14→21:18)
[2017-07-22] MEDS: PRENATAL VITAMINS W/ FOLIC ACID TABLET (FP) PO SCH (10:05)
[2017-07-22] MEDS: THIAMINE HCL 100 MG TABLET (FP) PO SCH (21:18)
[2017-07-22] MEDS: DOXEPIN HCL 50 MG CAPSULE PO SCH (21:18)
[2017-07-23] MEDS ORDERED: METHADONE HCL 10 MG TABLET ONE (04:36)
[2017-07-23] MEDS ORDERED: METHADONE HCL 40 MG DISPERSABLE TABLET ONE (04:36)
[2017-07-23] MEDS: METHADONE 80 MG, METHADONE 20 MG PO SCH (06:11)
[2017-07-23] MEDS: CYCLOBENZAPRINE HCL 5 MG TABLET PO SCH ×3 (06:11→21:12)
[2017-07-23] MEDS: hydrOXYzine PAMOATE 50 MG CAPSULE (FP) PO PRN ×3 (06:12→21:12)
[2017-07-23] MEDS: NICOTINE POLACRILEX 4 MG GUM BUC PRN ×5 (06:13→21:13)
[2017-07-23] MEDS: PRENATAL VITAMINS W/ FOLIC ACID TABLET (FP) PO SCH (09:54)
[2017-07-23] MEDS: DOXEPIN HCL 50 MG CAPSULE PO SCH (21:12)
[2017-07-23] MEDS: THIAMINE HCL 100 MG TABLET (FP) PO SCH (21:12)
[2017-07-24] MEDS ORDERED: METHADONE HCL 10 MG TABLET ONE (05:50)
[2017-07-24] MEDS ORDERED: METHADONE HCL 40 MG DISPERSABLE TABLET ONE (05:50)
[2017-07-24] MEDS: METHADONE 80 MG, METHADONE 20 MG PO SCH (06:09)
[2017-07-24] MEDS: NICOTINE POLACRILEX 4 MG GUM BUC PRN ×4 (06:10→21:27)
[2017-07-24] MEDS: CYCLOBENZAPRINE HCL 5 MG TABLET PO SCH ×3 (06:10→21:26)
[2017-07-24] MEDS: hydrOXYzine PAMOATE 50 MG CAPSULE (FP) PO PRN ×3 (06:11→21:26)
[2017-07-24] MEDS: PRENATAL VITAMINS W/ FOLIC ACID TABLET (FP) PO SCH (10:00)
[2017-07-24] MEDS: DOXEPIN HCL 50 MG CAPSULE PO SCH (21:26)
[2017-07-24] MEDS: THIAMINE HCL 100 MG TABLET (FP) PO SCH (21:26)
[2017-07-25] MEDS ORDERED: METHADONE HCL 40 MG DISPERSABLE TABLET ONE (04:44)
[2017-07-25] MEDS ORDERED: METHADONE HCL 10 MG TABLET ONE (04:44)
[2017-07-25] MEDS: NICOTINE POLACRILEX 4 MG GUM BUC PRN ×3 (06:19→21:16)
[2017-07-25] MEDS: CYCLOBENZAPRINE HCL 5 MG TABLET PO SCH ×3 (06:19→21:15)
[2017-07-25] MEDS: METHADONE 80 MG, METHADONE 20 MG PO SCH (06:19)
[2017-07-25] MEDS: PRENATAL VITAMINS W/ FOLIC ACID TABLET (FP) PO SCH (09:53)
[2017-07-25] MEDS: hydrOXYzine PAMOATE 50 MG CAPSULE (FP) PO PRN ×2 (09:54→21:15)
[2017-07-25] MEDS: DOXEPIN HCL 50 MG CAPSULE PO SCH (21:15)
[2017-07-25] MEDS: THIAMINE HCL 100 MG TABLET (FP) PO SCH (21:15)
[2017-07-26] MEDS ORDERED: METHADONE HCL 40 MG DISPERSABLE TABLET ONE (04:31)
[2017-07-26] MEDS ORDERED: METHADONE HCL 10 MG TABLET ONE (04:31)
[2017-07-26] MEDS: METHADONE 80 MG, METHADONE 20 MG PO SCH (06:19)
[2017-07-26] MEDS: CYCLOBENZAPRINE HCL 5 MG TABLET PO SCH ×3 (06:19→21:13)
[2017-07-26] MEDS: NICOTINE POLACRILEX 4 MG GUM BUC PRN ×5 (06:22→21:14)
[2017-07-26] MEDS: hydrOXYzine PAMOATE 50 MG CAPSULE (FP) PO PRN ×2 (06:23→21:13)
[2017-07-26] MEDS: PRENATAL VITAMINS W/ FOLIC ACID TABLET (FP) PO SCH (10:01)
[2017-07-26] MEDS: THIAMINE HCL 100 MG TABLET (FP) PO SCH (21:13)
[2017-07-26] MEDS: DOXEPIN HCL 50 MG CAPSULE PO SCH (21:13)
[2017-07-27] MEDS ORDERED: METHADONE HCL 40 MG DISPERSABLE TABLET ONE (04:29)
[2017-07-27] MEDS ORDERED: METHADONE HCL 10 MG TABLET ONE (04:29)
[2017-07-27] MEDS: METHADONE 80 MG, METHADONE 20 MG PO SCH (06:00)
[2017-07-27] MEDS: CYCLOBENZAPRINE HCL 5 MG TABLET PO SCH ×3 (06:07→21:10)
[2017-07-27] MEDS: hydrOXYzine PAMOATE 50 MG CAPSULE (FP) PO PRN ×2 (06:10→21:10)
[2017-07-27] MEDS: NICOTINE POLACRILEX 4 MG GUM BUC PRN ×3 (06:10→21:11)
[2017-07-27] MEDS: PRENATAL VITAMINS W/ FOLIC ACID TABLET (FP) PO SCH (09:58)
[2017-07-27] MEDS: THIAMINE HCL 100 MG TABLET (FP) PO SCH (21:10)
[2017-07-27] MEDS: DOXEPIN HCL 50 MG CAPSULE PO SCH (21:10)
[2017-07-28] MEDS ORDERED: METHADONE HCL 10 MG TABLET ONE (06:15)
[2017-07-28] MEDS ORDERED: METHADONE HCL 40 MG DISPERSABLE TABLET ONE (06:15)
[2017-07-28] MEDS: CYCLOBENZAPRINE HCL 5 MG TABLET PO SCH ×3 (06:16→21:20)
[2017-07-28] MEDS: METHADONE 80 MG, METHADONE 20 MG PO SCH (06:16)
[2017-07-28] MEDS: hydrOXYzine PAMOATE 50 MG CAPSULE (FP) PO PRN ×2 (06:16→21:20)
[2017-07-28] MEDS: PRENATAL VITAMINS W/ FOLIC ACID TABLET (FP) PO SCH (09:50)
[2017-07-28] MEDS: NICOTINE POLACRILEX 4 MG GUM BUC PRN ×3 (09:51→21:21)
--- NOTE | 2017-07-28 12:00 | PN ---
Psychiatric Progress Note Vital Signs: Vital Signs Period Temp Pulse Resp BP Sys/Barnes Pulse Ox Last 24 Hr 97.7 F 78 18-18 114/67 Date of Session: 07/28/17 Chief Complaint:: "DISCHARGE" HPI: Patient was admitted to for heroin and cocaine dependence. ROS: Anemia Current Medications: Active Medications Generic Name Dose Route Start Last Admin Trade Name Freq PRN Reason Stop Dose Admin Acetaminophen 650 mg 07/15/17 13:47 Tylenol - PO Q4H PRN FEVER Al Hydroxide/Mg Hydroxide 30 ml 07/15/17 13:47 Mylanta Oral Suspension - PO Q6H PRN DYSPEPSIA Cyclobenzaprine HCl 5 mg 07/17/17 14:00 07/28/17 06:16 Cyclobenzaprine Hcl PO 5 mg TID SHERLY Administration Doxepin HCl 100 mg 07/16/17 22:00 07/27/17 21:10 Sinequan - PO 100 mg HS SHERLY Administration Eucalyptus/Menthol/Phenol/Sorbitol 1 each 07/15/17 13:47 Cepastat Lozenge - MM Q4H PRN SORE THROAT Guaifenesin 10 ml 07/15/17 13:47 Robitussin Dm - PO Q6H PRN COUGH Hydroxyzine Pamoate 50 mg 07/16/17 14:26 07/28/17 06:16 Vistaril - PO 50 mg Q4H PRN Administration ANXIETY Ibuprofen 400 mg 07/15/17 13:47 Motrin - PO Q6H PRN Pain level 4-6 Loperamide HCl 4 mg 07/15/17 13:47 Imodium - PO Q6H PRN DIARRHEA Magnesium Citrate 300 ml 07/15/17 13:47 Citroma - PO Q48H PRN CONSTIPATION Magnesium Hydroxide 30 ml 07/15/17 13:47 Milk Of Magnesia - PO DAILY PRN CONSTIPATION Melatonin 5 mg 07/15/17 22:00 07/15/17 21:20 Melatonin PO 5 mg HS PRN Administration INSOMNIA Methadone HCl 80 mg/ Methadone 100 mg 07/22/17 07:00 07/28/17 06:16 HCl 20 mg PO 100 mg DAILY@0600 SHERLY Administration Nicotine 21 mg 07/15/17 13:47 Nicoderm Patch - TD DAILY PRN WITHDRAWAL(CONT SUBST) Nicotine Polacrilex 4 mg 07/15/17 13:47 07/28/17 09:51 Nicorette Gum - BUC 4 mg Q2H PRN Administration NICOTINE REPLACEMENT RX Multivit/Folic Acid/Iron 1 tab 07/16/17 10:00 07/28/17 09:50 Vitamins (Sj[facility]) - PO 1 tab DAILY SHERLY Administration Pseudoephedrine/Triprolidine 1 combo 07/15/17 13:47 Actifed - PO TID PRN NASAL CONGESTION Thiamine HCl 100 mg 07/15/17 22:00 07/27/17 21:10 Vitamin B1 - PO 100 mg HS SHERLY Administration Medication(s) Change(s): No. Current Side Effect: No Lab tests ordered: No Lab tests reviewed: Yes Provider note:: Patient able to complete the rehabilitation program on 07/29/17. Patient has met his treatment goals and will continue to address his needs at the [facility] outpatient program in [place]. He is able to identify behaviors which contribute to relapse, and has been able to develop skills to maintain recovery. Pt. reports finding Doxepin 100mg effective. Pt reports having enough medications at home and therefore does not require a refill. Patient is stable for discharge. Total face to face time:: 35 Mental Status Exam - Mental Status Exam Alert and Oriented to: Time, Place, Person Cognitive Function: Good Patient Appearance: Well Groomed Mood: Hopeful Affect: Mood Congruent Patient Behavior: Appropriate, Cooperative Speech Pattern: Clear, Appropriate Voice Loudness: Normal Thought Process: Intact Thought Disorder: Not Present Hallucinations: Denies Suicidal Ideation: Denies Homicidal Ideation: Denies Insight/Judgement: Good Sleep: Well Appetite: Good Muscle strength/Tone: Normal Gait/Station: Normal Psychiatric Treatment Plan - Problem List (1) Drug-induced mood disorder Current Visit: Yes (2) Methadone maintenance therapy patient Current Visit: Yes Comment: 100 MG (3) Nicotine dependence Current Visit: Yes Qualifiers: (4) Cocaine dependence, uncomplicated Current Visit: Yes
[2017-07-28] MEDS: THIAMINE HCL 100 MG TABLET (FP) PO SCH (21:19)
[2017-07-28] MEDS: DOXEPIN HCL 50 MG CAPSULE PO SCH (21:20)
[2017-07-29] MEDS ORDERED: METHADONE HCL 40 MG DISPERSABLE TABLET ONE (04:33)
[2017-07-29] MEDS ORDERED: METHADONE HCL 10 MG TABLET ONE (04:33)
[2017-07-29] MEDS ORDERED: METHADONE 80 MG, METHADONE 20 MG PO SCH (06:00)
[2017-07-29] MEDS: hydrOXYzine PAMOATE 50 MG CAPSULE (FP) PO PRN (06:23)
[2017-07-29] MEDS: NICOTINE POLACRILEX 4 MG GUM BUC PRN (06:23)
[2017-07-29] MEDS: CYCLOBENZAPRINE HCL 5 MG TABLET PO SCH (06:23)
[2017-07-29 06:39] VITALS: BP 112/72; PULSE 72; TEMP 97.9
[2017-07-29] MEDS: PRENATAL VITAMINS W/ FOLIC ACID TABLET (FP) PO SCH (09:43)
== END 2017-07-29 10:15 | disposition home or self-care (01) | DRG 772 ==
LOC: YASAS 10:22 → Y5N 14:25
PROVIDERS: ADMIT Psychiatry & Neurology Psychiatry; ATTEND Psychiatry & Neurology Psychiatry
PROC: HZ42ZZZ Group Counseling for Substance Abuse Treatment, Cognitive-Behavioral (ICD-10-PCS; principal; 2017-07-15)
DX: F14.20 Cocaine dependence, uncomplicated (principal); F11.20 Opioid dependence, uncomplicated; F17.210 Nicotine dependence, cigarettes, uncomplicated; F19.24 Other psychoactive substance dependence with psychoactive substance-induced mood disorder
CPT/HCPCS: 36415; 80053; 81003; 81015; 85027; 86593; 87389; 93005; 93010; J0475